=== PATIENT | male | born 1945 | race Caucasian/White ===

== ENCOUNTER → 2018-12-06 | Outpatient (CLI) | payer MEDICARE, OTHER ==
[~2018-12-06] MED LIST: ACET500T71 PO; ASPI-496 PO; ATOR10TA PO; MULT-26 PO; QUIN40TA15 PO; UBID50TA3 PO
== END | disposition home or self-care (01) ==
LOC: CFH 13:21
PROVIDERS: ATTEND Student in an Organized Health Care Education/Training Program
DX: N28.1 Cyst of kidney, acquired (principal); E27.9 Disorder of adrenal gland, unspecified; K57.30 Diverticulosis of large intestine without perforation or abscess without bleeding; Q60.0 Renal agenesis, unilateral; F17.200 Nicotine dependence, unspecified, uncomplicated
CPT/HCPCS: 74176

== ENCOUNTER → 2020-09-22 | Outpatient (CLI) | payer MEDICARE, OTHER ==
[~2020-09-22] MED LIST changes: +ACET500T64 PO; -ACET500T71 PO; +AMIO200T42 PO; +AMLO2.5T5 PO; +ATOR40TA78 PO; +CLOB15OI TD; +IMIQ1CRE TD; +LUTE1CAP PO
== END | disposition home or self-care (01) ==
LOC: STAR 13:11
PROVIDERS: ATTEND Student in an Organized Health Care Education/Training Program
DX: Z01.818 Encounter for other preprocedural examination (principal); N28.9 Disorder of kidney and ureter, unspecified; Z20.822 Contact with and (suspected) exposure to COVID-19
CPT/HCPCS: 87635; 93005

== ENCOUNTER 2020-09-26 05:54 | Day surgery (SDC) | payer MEDICARE, OTHER ==
[~2020-09-26] VITALS: Ht 177.8 cm; Wt 73.1 kg
[2020-09-26 06:21] VITALS: BP 141/65
[2020-09-26] MEDS ORDERED: CHLORHEXIDINE 15 ML UDC MM ONE (06:30)
[2020-09-26] MEDS ORDERED: LACTATED RINGERS 1,000 ML IV SCH (06:30)
[2020-09-26] MEDS ORDERED: FENTANYL PF 250 MCG/5ML ONE (06:47)
[2020-09-26] MEDS ORDERED: MITOMYCIN 40 MG in STERILE WATER 20 ML INTVESIC ONE (07:00)
[2020-09-26] MEDS ORDERED: SUGAMMADEX 200 MG/2 ML IVPush ONE (07:10)
[2020-09-26] MEDS ORDERED: DEXAMETHASONE 4 MG/ML, 1ML ONE (07:10)
[2020-09-26] MEDS ORDERED: PROPOFOL 10 MG/ML, 20ML ONE (07:10)
[2020-09-26] MEDS ORDERED: ONDANSETRON 2MG/ML, 2ML ONE (07:10)
[2020-09-26] MEDS ORDERED: ROCURONIUM 10MG/ML,5ML ONE (07:10)
[2020-09-26] MEDS ORDERED: morphine SULFATE 10 MG/ML, 1ML IVPush PRN (07:30)
[2020-09-26] MEDS ORDERED: MEPERIDINE/PF 25MG/0.5ML IVPush PRN (07:30)
[2020-09-26] MEDS ORDERED: hydrALAzine 20 MG/ML, 1ML IV PRN (07:30)
[2020-09-26] MEDS ORDERED: ONDANSETRON 2MG/ML, 2ML IVPush PRN (07:30)
[2020-09-26] MEDS ORDERED: ACETAMINOPHEN 325 MG TABLET PO PRN (07:30)
[2020-09-26] MEDS ORDERED: OXYcodone 5 MG/5 ML ORAL.SOL UDC PO PRN (07:30)
[2020-09-26] MEDS ORDERED: FENTANYL PF 100 MCG/2ML IV PRN (07:30)
[2020-09-26] MEDS ORDERED: LABETALOL 5MG/ML, 20ML IV PRN (07:30)
[2020-09-26] MEDS ORDERED: HYDROmorphone 1 MG/ML, 1ML INJ IVPush PRN (07:30)
[2020-09-26] MEDS ORDERED: AMPICILLIN 2 GM ONE (07:44)
[2020-09-26] MEDS ORDERED: GENTAMICIN 80 MG/2 ML ONE (07:46)
[2020-09-26] MEDS ORDERED: GEMCITABINE HCL 2,000 MG in SODIUM CHLORIDE 0.9% 100 ML IV ONE (08:00)
[2020-09-26] MEDS ORDERED: GEMCITABINE HCL 2,000 MG in SODIUM CHLORIDE 0.9% 100 ML IS ONE (08:30)
[2020-09-26] MEDS ORDERED: GEMCITABINE HCL 2,000 MG in SODIUM CHLORIDE 0.9% 47.4 ML IS ONE (08:30)
[2020-09-26] MEDS ORDERED: LABETALOL 5MG/ML, 20ML ONE (08:50)
== END 2020-09-26 12:20 | disposition home or self-care (01) ==
LOC: OUT 05:54
PROVIDERS: ATTEND Student in an Organized Health Care Education/Training Program
DX: C66.1 Malignant neoplasm of right ureter (principal); I12.9 Hypertensive chronic kidney disease with stage 1 through stage 4 chronic kidney disease, or unspecified chronic kidney disease; N18.9 Chronic kidney disease, unspecified; E78.00 Pure hypercholesterolemia, unspecified; I25.10 Atherosclerotic heart disease of native coronary artery without angina pectoris; Z88.1 Allergy status to other antibiotic agents; Z88.8 Allergy status to other drugs, medicaments and biological substances; Z79.899 Other long term (current) drug therapy; Z87.891 Personal history of nicotine dependence; Z72.89 Other problems related to lifestyle; Z79.01 Long term (current) use of anticoagulants; Z95.5 Presence of coronary angioplasty implant and graft; Z82.49 Family history of ischemic heart disease and other diseases of the circulatory system
CPT/HCPCS: 51720; 52332; 74018; C1769; C2617; J0290; J1100; J1580; J2405; J2704; J3010; J7120; J9201; J9280; 76000